=== PATIENT | female | born 1935 | race Caucasian/White ===

== ENCOUNTER → 2017-12-01 | Outpatient (CLI) | payer MEDICARE, OTHER ==
--- NOTE | 2017-12-01 11:43 | CT ---
EXAM DESCRIPTION: Abdoment/Pelvis w/o Contrast CLINICAL HISTORY: 82 years Female, PELVIC PAIN COMPARISON: None available. TECHNIQUE: Contiguous 3 mm axial images were obtained from the lung bases to the level of the proximal femora without the administration of intravenous or oral contrast. Sagittal and coronal reconstructions were reviewed. FINDINGS: Limited evaluation of the solid organs due to the lack of intravenous contrast. THORAX: The imaged lower thorax demonstrates no gross abnormality. LIVER: 1 cm hypodense lesion is noted in hepatic segment 2 along the dome of the liver. No other abnormality is visualized. GALLBLADDER: Grossly unremarkable. PANCREAS: Appears normal with no cystic or solid lesions. SPLEEN: Normal ADRENAL GLANDS: Normal with no nodules or masses. KIDNEYS: The right kidney is surgically absent. Left kidney appears grossly unremarkable. The visualized ureters appear grossly unremarkable. STOMACH: Small hiatal hernia is noted. The stomach is not well-distended limiting detailed evaluation. SMALL BOWEL: The small bowel loops demonstrate variable degrees of distention with no abnormal dilatation or other signs to suggest bowel obstruction. LARGE BOWEL: Moderate to large amount of fecal material is noted throughout the colon, consistent with constipation. Scattered diverticuli are identified. No evidence of free intraperitoneal air or fluid. RETROPERITONEUM: The abdominal aorta is nonaneurysmal with mild to moderate atherosclerosis. The inferior vena cava is normal in size and caliber. No abnormally enlarged retroperitoneal lymph nodes are identified. URINARY BLADDER:The urinary bladder is well-distended with no gross abnormality. The uterus and adnexa appear normal. ADDITIONAL FINDINGS: None. BONES: Moderate degenerative changes are identified in the visualized bones.No evidence of osteophytic or osteoblastic lesions. IMPRESSION: 1. Constipation. Colonic diverticulosis with no acute inflammation. 2. Small hiatal hernia. This exam was performed according to our departmental dose-optimization program, which includes automated exposure control, adjustment of the mA and/or kV according to patient size and/or use of iterative reconstruction technique. Electronically signed by: Gwen Estrella MD 12/01/2017 11:42 AM CDT
== END ==
LOC: CT 11:06
PROVIDERS: ATTEND General Practice
DX: K44.9 Diaphragmatic hernia without obstruction or gangrene (principal); K59.00 Constipation, unspecified; K57.30 Diverticulosis of large intestine without perforation or abscess without bleeding; R10.2 Pelvic and perineal pain